=== PATIENT | male | born 1990 | race Asian ===

== ENCOUNTER 2016-09-02 16:00 | Emergency (ER) | payer MEDICAID ==
[~2016-09-02] VITALS: Ht 170.2 cm; Wt 79.4 kg
[2016-09-02 16:01] VITALS: BP 126/80
[2016-09-02] MEDS ORDERED: METHOCARBAMOL 750 MG TABLET ONE (16:58)
[2016-09-02] MEDS ORDERED: KETOROLAC 30 MG/1 ML ONE (16:58)
[2016-09-02] MEDS ORDERED: KETOROLAC 30 MG/1 ML IM ONE (17:00)
[2016-09-02] MEDS ORDERED: METHOCARBAMOL 750 MG TABLET PO ONE (17:00)
== END 2016-09-02 17:22 | disposition home or self-care (01) ==
LOC: ED 17:16
DX: M62.830 Muscle spasm of back (principal); M54.5 Low back pain; M54.6 Pain in thoracic spine
CPT/HCPCS: 96372; 99283; J1885

== ENCOUNTER 2017-10-01 19:47 | Emergency (ER) | payer MEDICAID ==
[~2017-10-01] VITALS: Ht 172.7 cm; Wt 86.0 kg
[2017-10-01 20:14] VITALS: BP 115/76
== END 2017-10-01 21:21 | disposition home or self-care (01) ==
LOC: ED 21:12
DX: S93.402A Sprain of unspecified ligament of left ankle, initial encounter (principal); X50.1XXA Overexertion from prolonged static or awkward postures, initial encounter; Y93.89 Activity, other specified; Y92.488 Other paved roadways as the place of occurrence of the external cause; Y99.2 Volunteer activity
CPT/HCPCS: 99284